=== PATIENT | female | born 1960 | race Caucasian/White ===

== ENCOUNTER → 2020-03-24 13:47 | Outpatient (BNVA) | payer BC, SELFPAY | PROVIDERS: Family Provider Family Medicine; Referring Provider Registered Nurse; Visit Provider Podiatrist Foot & Ankle Surgery | DX: S99.912A Unspecified injury of left ankle, initial encounter (principal); X58.XXXA Exposure to other specified factors, initial encounter | CPT/HCPCS: 73610 ==

== ENCOUNTER 2020-03-24 16:11 | Outpatient (CLI) | payer BC, SELFPAY | END 2020-03-24 16:12 | disposition home or self-care (01) | LOC: SPT 16:13 | PROVIDERS: Family Provider Family Medicine; Visit Provider Podiatrist Foot & Ankle Surgery | DX: Z47.89 Encounter for other orthopedic aftercare (principal); S93.402D Sprain of unspecified ligament of left ankle, subsequent encounter; S82.492D Other fracture of shaft of left fibula, subsequent encounter for closed fracture with routine healing; X58.XXXD Exposure to other specified factors, subsequent encounter | CPT/HCPCS: 97760; L4361 ==

== ENCOUNTER 2020-05-01 15:33 | Emergency (ER) | payer BC, SELFPAY ==
[2020-05-01 15:37] VITALS: BP 146/101; PULSE 94; RESP 18; TEMP 36.6; O2SAT 95; BMI 44.6
--- NOTE | 2020-05-01 15:49 | USCV_ITS ---
Ladan Walls Age: 60 Gender: F : 1960 Exam Date: 05/01/2020 16:11 Ordering Phys: Vanesa Bronson DO Technologist: Margy Garcia Exam Location: [facility] [place] Indication: HISTORY OF PE WITH LT LEG DVT. HISTORY: Patients lt leg is swollen. PROCEDURES: Venous duplex imaging was performed in only the left lower extremity. The following venous structures were evaluated: common femoral vein, profunda vein, proximal portion of the greater saphenous vein, superficial femoral vein, and the popliteal vein. In addition, the posterior tibial and peroneal trunk were evaluated. Serial compression, augmentation maneuvers, and spectral Doppler flow evaluation were performed. FINDINGS: No DVT seen in any vessel examined. CONCLUSIONS No DVT left lower extremity. Domenic Bland (Electronically Signed) Final Date: 01 May 2020 16:33 S
--- NOTE | 2020-05-01 16:01 | W.ED.EXTPRO ---
HPI - Extremity Problem General: Chief complaint: Extremity Injury, Lower Stated complaint: leg swelling and pain Time Seen by Provider: 05/01/20 15:59 History of Present Illness: HPI Narrative: Patient complains about left calf pain just recently got out of a cam walker due to fibular fracture that she had. Said she had a cramp in her leg about 0 400 this morning and it is hurt since and she said is starting to swell. Complaint: extremity pain and extremity swelling Onset (ago): hour(s) Pain Consistency: constant Location: left and lower extremity Severity scale (1-10): 6 Quality: stabbing and aching Radiation: proximal Relieving factors: nothing Exacerbating factors: range of motion and weight bearing Associated symptoms: Reports no associated symptoms; Deny chest pain, fever(s) or rash Context: immobilization Review of Systems Const: Denies: fever(s), chills or body aches Eyes: Denies: change in vision or blurry vision ENMT: Denies: throat pain or nasal congestion Card: Denies: chest pain or dyspnea on exertion Resp: Denies: dyspnea, productive cough or non-productive cough GI: Denies: abdominal pain, nausea or vomiting Musc: Reports: extremity pain (Left calf pain and swelling since 0 400 this morning) Skin/Breast: Denies: rash Neuro: Denies: headache(s) Psych: Denies: anxiety or depression Minh/Lymph: Denies: easy bruising PFS ED PFSH: Medical History Embolism Social History Smoking and tobacco status: never smoked Alcohol intake: never Physical Exam Const: COMMON NORMALS: no acute distress, average body habitus and patient oriented x3 HENMT: COMMON NORMALS: normocephalic HEAD & SCALP: normal to inspection and normocephalic FACE & SINUS: normal facial exam Eye: COMMON NORMALS: conjunctivae normal GENERAL EYE: appearance normal, both eyes and all related structures CONJUNCTIVA: Yes conjunctivae normal Neck/C-Spine: COMMON NORMALS: no JVD Chest: COMMONS NORMALS: normal inspection of the chest Resp: COMMON NORMALS: normal respiratory effort and clear to auscultation bilaterally AUSCULTATION: clear to auscultation bilaterally Cardio: COMMON NORMALS: no JVD, regular rate and regular rhythm RATE: regular rate RHYTHM: regular rhythm GI: COMMON NORMALS: Normal to inspection, nondistended, normoactive bowel sounds present Extremity: COMMON NORMALS: negative for no calf tenderness (Left calf is tender hard to tell if it swollen compared to the right due to her size positive distal pulses) Neuro: COMMON NORMALS: patient oriented x3 Course Vital Signs: Vital signs: Vital Signs Temperature 97.9 F 05/01/20 15:37 Pulse Rate 94 05/01/20 15:37 Respiratory Rate 18 05/01/20 15:37 Blood Pressure 146/101 05/01/20 15:37 Pulse Oximetry 95 05/01/20 15:37 Discharge Plan Discharge Prescriptions: No Action Delflex with 2.5 % Dextrose Ca 2.5 mEq/L- Mg 0.5 mEq/L solution INTRAPERIT RF: 0 copper 5 mg tablet 5 mg PO DAILY RF: 0 loratadine [Claritin Liqui-Gel] 10 mg capsule 10 mg PO DAILY RF: 0 garlic 580 mg capsule 1 mg PO DAILY RF: 0 ascorbate calcium (vitamin C) 500 mg tablet 500 mg PO DAILY RF: 0 (DME) CAM WALKER See Rx Instructions .ROUTE .MEDSUPPLY Qty: 1 RF: 0 Coding Level of Care Code ED Gas Engine Operator Generators for Jamaal Montes
[2020-05-01 16:47] VITALS: PULSE 87; RESP 18; O2SAT 98
== END 2020-05-01 16:48 | disposition home or self-care (01) ==
PROVIDERS: Emergency Provider Nurse Practitioner Family; PCP Family Medicine
DX: M79.89 Other specified soft tissue disorders (principal)
CPT/HCPCS: 12345; 93971; 99281; 99282

== ENCOUNTER 2020-06-08 12:57 | Outpatient (CLI) | payer BC, SELFPAY ==
[2020-06-08] MEDS: iohexol 350 mg/mL 100 mL Btl IV (13:30)
--- NOTE | 2020-06-08 13:30 | CT_ITS ---
WS: [id number] CTA THORACIC TECHNIQUE: Contrast enhanced CTA of the thoracic aorta with coronal and sagittal reformatted images a nd maximum intensity projection (MIP) images. CLINICAL INFORMATION: assess thoracic aorta aneurysm COMPARISON: 8 ,019 DLP: 1313.[address] scans at [facility] use at least one of these dose optimization techniques: automat ed exposure control; mA and/or kV adjustment per patient size (includes targeted exams where dose is matched to clinical indication); or iterative reconstruction. FINDINGS: Proximal main pulmonary arteries are normal. Segmental and subsegmental pulmonary arteries appear normal. No evidence of pulmonary embolus. Slightly ectatic ascending thoracic aorta measuring 3.7 x 3.7 cm unchanged from previous. Normal caliber descending thoracic aorta. Postoperative changes lower cervical spine. Great vessel origins are normal in appearance. No mediastinal or hilar lymphadenopathy. No axillary l ymphadenopathy. Lungs are well aerated. No acute pulmonary infiltrates. No consolidation or pleural f luid. No focal pneumonia. Cholecystectomy clips. Hepatic cyst right hepatic lobe measuring 1.7 CM. Enhancing cavernous hemangio ma unchanged measuring 1.9 cm. Partially visualized visualized renal lesion only covered on the noncontrast imaging involving the up per pole left kidney suspicious for neoplasm also partially visualized on prior CT chest. Recommend C T abdomen pelvis and urology consultation. CT/CT angio chest [id number] IMPRESSION: 1. Stable ectatic ascending thoracic aorta unchanged measuring 3.7 x 3.7 cm. 2. No evidence for pulmonary embolus. 3. Normal caliber descending thoracic aorta and visualized upper abdominal aor ta. 4. 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 Recommend further evaluation with CT abdomen pelvis and ur ology consultation.
== END 2020-06-08 12:58 | disposition home or self-care (01) ==
LOC: RADWPI 13:00
PROVIDERS: PCP Family Medicine; Visit Provider Internal Medicine
DX: I71.9 Aortic aneurysm of unspecified site, without rupture (principal)
CPT/HCPCS: 71275; Q9967

== ENCOUNTER → 2022-05-30 14:02 | Outpatient (BNVA) | payer OTHER, SELFPAY | PROVIDERS: PCP Family Medicine; Visit Provider Specialist | DX: S70.01XA Contusion of right hip, initial encounter (principal); W18.30XA Fall on same level, unspecified, initial encounter | CPT/HCPCS: 73502 ==

== ENCOUNTER → 2022-06-22 15:18 | Outpatient (BNVA) | payer OTHER, SELFPAY | PROVIDERS: PCP Family Medicine; Visit Provider Specialist | DX: S93.601A Unspecified sprain of right foot, initial encounter (principal); W01.0XXA Fall on same level from slipping, tripping and stumbling without subsequent striking against object, initial encounter; E66.01 Morbid (severe) obesity due to excess calories; Z68.41 Body mass index [BMI] 40.0-44.9, adult | CPT/HCPCS: 73610; 73630 ==

== ENCOUNTER 2022-08-07 19:10 | Emergency (ER) | payer OTHER, SELFPAY ==
[2022-08-07 19:22] VITALS: BP 167/113; PULSE 88; RESP 16; TEMP 36.5; O2SAT 97; BMI 43.9
--- NOTE | 2022-08-07 19:36 | XRR_ITS ---
PROCEDURE INFORMATION: Exam: XR Right Shoulder Exam date and time: 08/07/2022 9:05 PM Age: 62 years old Clinical indication: Injury or trauma; Fall; Blunt trauma (contusions or hematomas); Shoulder; Right TECHNIQUE: Imaging protocol: Radiologic exam of the Right shoulder. Views: 2 or more views. COMPARISON: CR XR chest 1V [id number] 05/07/2019 12:28 PM FINDINGS: Bones/joints: Cervical spine fusion hardware noted. Spurring of anterior undersurface of acromion suggested. Humeral head appears somewhat superiorly migrated. No findings of fracture or dislocation. Soft tissues: Normal. XR/XR shoulder RT min 2V* [id number] IMPRESSION: No acute bony findings. Findings suspicious for rotator cuff arthropathy.
[2022-08-07] MEDS: morphine 4 mg/mL SDV 1 mL IM (19:52)
--- NOTE | 2022-08-07 19:56 | W.ED.EXTPRO ---
HPI - Extremity Problem General: Chief complaint: Extremity Injury, Upper Stated complaint: Right Arm injury, fall Time Seen by Provider: 08/07/22 19:27 Source: patient Mode of arrival: ambulatory Limitations: no limitations History of Present Illness: 62-year-old female who states that she had fell this evening landed on her right shoulder. She states she has had right shoulder along with right trapezius pain since then. Its much worse with palpation and movement improved with rest. She denies hitting her head denies any other injuries. Associated symptoms: Deny chest pain, fever(s) or rash Review of Systems Const: Denies: fever(s), chills, body aches or change in appetite Eyes: Denies: blurry vision or eye discomfort ENMT: Denies: throat pain or dental pain Card: Denies: chest pain Resp: Denies: dyspnea GI: Denies: abdominal pain, nausea, vomiting or diarrhea : Denies: dysuria Musc: Denies: neck pain or back pain Skin/Breast: Denies: rash Neuro: Denies: headache(s) Psych: Denies: depression Minh/Lymph: Denies: easy bruising All/Imm: Denies: urticaria PFSH ED PFSH: Medical History (Updated 08/07/22 @ 20:14 by Tl Aiken MD) Embolism Social History Smoking and tobacco status: never smoked Alcohol intake: never Physical Exam Const: COMMON NORMALS: no acute distress, patient oriented x3 and healthy appearing HENMT: COMMON NORMALS: normocephalic and atraumatic HEAD & SCALP: normocephalic and atraumatic Eye: COMMON NORMALS: Equal, round and reactive pupils present and EOMs intact bilaterally PUPIL: Yes Equal, round and reactive pupils present Neck/C-Spine: COMMON NORMALS: full ROM and supple Chest: COMMONS NORMALS: normal inspection of the chest and normal palpation of entire chest wall Resp: COMMON NORMALS: normal respiratory effort, No retractions, No use of accessory muscles and clear to auscultation bilaterally AUSCULTATION: clear to auscultation bilaterally Cardio: COMMON NORMALS: regular rate, regular rhythm and No murmurs present (Cardio) RATE: regular rate RHYTHM: regular rhythm GI: COMMON NORMALS: Normal to inspection, nondistended, normoactive bowel sounds present, Soft to palpation, non-tender and no masses PALPATION: Yes Soft to palpation Extremity: NARRATIVE EXTREMITY EXAM: Tenderness over the right side the neck with tenderness in the shoulder and trapezius muscle she does have pain with range of motion distal pulses intact no midline neck tenderness Neuro: COMMON NORMALS: patient oriented x3, moves all extremities and no focal motor deficits Psych: COMMON NORMALS: mental status grossly normal, Normal thought process present and cooperative THOUGHT PROCESS: Normal thought process present Skin: COMMON NORMALS: no rashes or lesions noted and no wounds GENERAL SKIN EXAM: no rashes or lesions noted Course Vital Signs: Vital signs: Vital Signs Temperature 97.7 F 08/07/22 19:22 Pulse Rate 88 08/07/22 19:22 Respiratory Rate 16 08/07/22 19:22 Blood Pressure 167/113 08/07/22 19:22 Pulse Oximetry 97 08/07/22 19:22 Oxygen Delivery Me thod 08/07/22 19:22 MDM - Extremity (Nontraumatic) Medical Decision Making Patient presents here with shoulder strain x-ray is normal patient placed in a sling is to follow-up with orthopedics return if worsening. Lab Data Radiology Impressions Shoulder X-Ray 08/07/22 19:36 IMPRESSION: No acute bony findings. Findings suspicious for rotator cuff arthropathy. Discharge Plan Discharge Patient Disposition: Home Clinical Impression: Sprain of right shoulder Qualifiers: Encounter type: initial encounter Shoulder sprain type: unspecified sprain Qualified Code(s): S43.401A - Unspecified sprain of right shoulder joint, initial encounter Condition: Stable Prescriptions: New Naprosyn 500 mg tablet 500 mg PO BID PRN (Reason: pain) Qty: 20 0RF No Action copper 5 mg tablet 5 mg PO DAILY loratadine [Claritin Liqui-Gel] 10 mg capsule 10 mg PO DAILY garlic 580 mg capsule 1 mg PO DAILY ascorbate calcium (vitamin C) 500 mg tablet 500 mg PO DAILY (DME) CAM WALKER See Rx Instructions .ROUTE .MEDSUPPLY Qty: 1 0RF Rx Instructions: As directed meloxicam 15 mg tablet 15 mg PO DAILY 30 Days Qty: 30 3RF Discharge Orders: Discharge ED (Routine); Ordered 08/07/22 Ordered By: Tl Aiken Referrals: Huang Michaels MD [Physician] - 1-3 days Janet Melvin DO [Primary Care Provider] - Discharge Diet: Advance as tolerated Discharge Activity: Resume usual activity Patient Instructions: Shoulder Sprain (ED) Coding Level of Care Code ED Senior Compliance Analyst for Chg Fwd Exam Comprehensive
--- NOTE | 2022-08-08 10:02 | DCPLANNER ---
Addendum entered by Sunni Gallegos 08/18/22 16:37: Patient had a follow up appointment scheduled for 08.10.[address] Michaels at ortho - patient did attend appointment. Original Note: case managers had message to schedule a follow up appointment for patient with ortho. case managers sent patients information to the front office staff at ortho. Patients information will be printed and reviewed. Clinic will she patient with appointment information.
== END 2022-08-07 20:20 | disposition home or self-care (01) ==
PROVIDERS: Emergency Provider Emergency Medicine; PCP Family Medicine
DX: S43.401A Unspecified sprain of right shoulder joint, initial encounter (principal); W19.XXXA Unspecified fall, initial encounter
CPT/HCPCS: 73030; 96372; 99284; J2270

== ENCOUNTER 2022-12-20 21:07 | Emergency (ER) | payer OTHER, SELFPAY ==
[2022-12-20 21:13] VITALS: BP 173/115; PULSE 93; RESP 20; TEMP 36.4; O2SAT 94; BMI 44.6
[2022-12-20 21:18] VITALS: BP 173/115; PULSE 101; RESP 18; TEMP 36.4; O2SAT 95
--- NOTE | 2022-12-20 21:21 | XRR_ITS ---
PROCEDURE INFORMATION: Exam: XR Left Foot Exam date and time: 12/20/2022 9:29 PM Age: 62 years old Clinical indication: Injury or trauma; Fall; Sprain or strain; Ankle and foot; Left; Additional info: Fall pain TECHNIQUE: Imaging protocol: Radiologic exam of the left foot. Views: 3 or more views. COMPARISON: No relevant prior studies available. FINDINGS: Bones/joints: Calcified heel spur. Soft tissues: Normal. XR/XR foot LT min 3V* [id number] IMPRESSION: Negative for fracture or dislocation.
--- NOTE | 2022-12-20 21:21 | XRR_ITS ---
PROCEDURE INFORMATION: Exam: XR Left Ankle Exam date and time: 12/20/2022 9:31 PM Age: 62 years old Clinical indication: Injury or trauma; Fall; Sprain or strain; Ankle and foot; Left; Additional info: Fall, pain TECHNIQUE: Imaging protocol: Radiologic exam of the left ankle. Views: 3 or more views. COMPARISON: CR (LOW EXM, ) 12/20/2022 9:29 PM FINDINGS: Bones/joints: Calcified heel spur. Soft tissues: Normal. XR/XR ankle LT min 3V* [id number] IMPRESSION: Negative for fracture or dislocation.
--- NOTE | 2022-12-20 21:22 | ED_ITS ---
HPI - Extremity Problem General: Chief complaint: Extremity Injury, Lower Stated complaint: left ankle injury Time Seen by Provider: 12/20/22 21:17 History of Present Illness: Patient presents ER with complaints of left foot and ankle pain. Patient states she was walking in her yard earlier tonight and tripped over a root, felt heard a pop in her ankle and had immediate pain. Patient is unable to put weight on the foot. Patient has had problems with what sounds like a avulsion type fracture of the lateral malleolus in the past. MD Complaint: extremity pain and extremity swelling Onset (ago): hour(s) (A few hours ago) Pain Consistency: constant Location: left and lower extremity Severity scale (1-10): 8 Quality: aching and constant Relieving factors: nothing Exacerbating factors: range of motion, weight bearing and palpation Associated symptoms: Reports no associated symptoms; Deny chest pain, fever(s) or rash Review of Systems General: Reports: 10 or more systems reviewed and unremarkable except in HPI and below Const: Denies: fever(s) or chills Eyes: Denies: change in vision ENMT: Denies: throat pain or odynophagia Card: Denies: chest pain, palpitations or irregular heart rhythm Resp: Denies: dyspnea, productive cough or non-productive cough GI: Denies: abdominal pain, nausea, vomiting or diarrhea : Denies: flank pain, difficulty voiding or dysuria Musc: Reports: extremity pain and extremity swelling Skin/Breast: Denies: rash or pruritus Neuro: Denies: headache(s) or numbness in extremities [facility] ED PFSH: Medical History (Updated 12/20/22 @ 22:24 by Paul Avilez DO) Embolism Social History Smoking and tobacco status: never smoked Alcohol intake: never Physical Exam Const: COMMON NORMALS: no acute distress, average body habitus, patient oriented x3, no limitations, healthy appearing, alert and well nourished HENMT: COMMON NORMALS: normocephalic, atraumatic, hearing grossly normal bilaterally, external ears normal, Normal external nose present and moist oral mucous membranes HEAD & SCALP: normocephalic and atraumatic NOSE: Normal external nose present EXTERNAL EAR: Yes external ears normal Eye: COMMON NORMALS: Equal, round and reactive pupils present, EOMs intact bilaterally, conjunctivae normal and no scleral icterus CONJUNCTIVA: Yes conjunctivae normal PUPIL: Yes Equal, round and reactive pupils present Neck/C-Spine: COMMON NORMALS: full ROM, no lymphadenopathy, supple, no meningeal signs, no JVD and Thyroid normal THYROID: Thyroid normal Chest: COMMONS NORMALS: normal inspection of the chest and normal palpation of entire chest wall Resp: COMMON NORMALS: normal respiratory effort, No retractions, No use of accessory muscles and clear to auscultation bilaterally AUSCULTATION: clear to auscultation bilaterally Cardio: COMMON NORMALS: no JVD, regular rate, regular rhythm, S1 normal heart sound present and S2 normal heart sound present RATE: regular rate RHYTHM: regular rhythm HEART SOUNDS: S1 normal heart sound present and S2 normal heart sound present GI: COMMON NORMALS: Normal to inspection, nondistended, normoactive bowel sounds present, Soft to palpation, non-tender and No hepatosplenomegaly present PALPATION: Yes Soft to palpation and Yes No hepatosplenomegaly present Extremity: NARRATIVE EXTREMITY EXAM: Patient is exquisitely tender over left lateral malleolus and left fifth met atarsal region, they are swollen, patient is unable to bear weight secondary to pain, limited range of motion secondary to pain, Neuro: COMMON NORMALS: patient oriented x3, CN's II-XII intact bilaterally, moves all extremities, no focal motor deficits and no sensory deficits noted SENSORIUM/ORIENTATION: Yes alert MENINGEAL SIGNS: Yes no meningeal signs Course Vital Signs: Vital signs: Vital Signs Temperature 97.5 F L 12/20/22 21:18 Pulse Rate 101 H 12/20/22 21:18 Respiratory Rate 18 12/20/22 21:18 Blood Pressure 173/115 12/20/22 21:18 Pulse Oximetry 95 12/20/22 21:18 Oxygen Delivery Me thod 12/20/22 21:18 MDM - Extremity (Nontraumatic) Medical Decision Making Patient presents to the ER with complaints of left ankle pain and swelling secondary post fall. Patient has an extensive history of ankle and foot problems and already sees Dr. Montero the bottom loader. Patient is currently on meloxicam daily and Voltaren gel 3 times a day for her right foot. X-rays were taken of the foot and ankle which reveal no acute fracture. Patient already has a boot is and crutches at home. Patient was instructed to use these at least for the next 3 days and to follow-up with Dr. Montero in approximately 7 to 10 days. Patient is also instructed to use the Voltaren gel on her left foot and ankle 3 times a day as needed. Patient will be discharged home Differential Diagnosis Unlikely herpes zoster, gout, cellulitis, superficial thrombophlebitis, deep venous thrombosis of upper extremity, lower extremity edema or deep vein thrombosis of lower extremity Medical Records I reviewed the patient's medical records. Lab Data I reviewed the patient's lab results. Radiology Impressions Ankle X-Ray 12/20/22 21:21 IMPRESSION: Negative for fracture or dislocation. Foot X-Ray 12/20/22 21:21 IMPRESSION: Negative for fracture or dislocation. Discharge Plan Discharge Patient Disposition: Home Clinical Impression: Fall from ground level Left ankle sprain Qualifiers: Encounter type: initial encounter Involved ligament of ankle: unspecified ligament Qualified Code(s): S93.402A - Sprain of unspecified ligament of left ankle, initial encounter Condition: Stable Prescriptions: No Action copper 5 mg tablet 5 mg PO DAILY loratadine [Claritin Liqui-Gel] 10 mg capsule 10 mg PO DAILY garlic 580 mg capsule 1 mg PO DAILY ascorbate calcium (vitamin C) 500 mg tablet 500 mg PO DAILY (DME) CAM WALKER See Rx Instructions .ROUTE .MEDSUPPLY Qty: 1 0RF Rx Instructions: As directed meloxicam 15 mg tablet 15 mg PO DAILY 30 Days Qty: 30 3RF Naprosyn 500 mg tablet 500 mg PO BID PRN (Reason: pain) Qty: 20 0RF Discharge Orders: Discharge ED (Routine); Ordered 12/20/22 Ordered By: Paul Avilez Referrals: Janet Melvin DO [Primary Care Provider] - 1 week Discharge Activity: Limit activity as instructed Patient Instructions: Ankle Sprain (ED) Activity Restrictions/Additional Instructions: Please start using your cam boot and crutches for your left ankle sprain. Continue using your meloxicam and start using your Voltaren gel on your left ankle 3 times a day as needed. Please follow-up with Dr. Montero in approximately 7 to 10 days if needed Coding Level of Care Code ED Survey Rodman for Jamaal Montes
[2022-12-20 23:04] VITALS: BP 143/106; PULSE 89; RESP 18; O2SAT 95
== END 2022-12-20 23:05 | disposition home or self-care (01) ==
PROVIDERS: Emergency Provider Emergency Medicine; PCP Family Medicine
DX: S93.402A Sprain of unspecified ligament of left ankle, initial encounter (principal); W18.09XA Striking against other object with subsequent fall, initial encounter
CPT/HCPCS: 73610; 73630; 99283

== ENCOUNTER 2023-08-17 15:57 | Outpatient (CLI) | payer OTHER, SELFPAY ==
--- NOTE | 2023-08-17 16:23 | CT_ITS ---
WS: [id number] CT HEAD WITH AND WITHOUT CONTRAST HISTORY: ACUTE NONINTRACTABLE HEADACHE, HX OF TIA TECHNIQUE: Noncontrast 2.5 mm axial images obtained from the vertex to the skull base. Additional [place] ging performed at 2.5 mm axial images status post IV contrast. Bone and soft tissue windows are revie wed. All CT scans at [facility] use at least one of these dose optimization techniques: autom ated exposure control; mA and/or kV adjustment per patient size (includes targeted exams where dose i s matched to clinical indication); or iterative reconstruction. CONTRAST: Omnipaque 350; 100 mL IV. DLP: 1930.40 mGy.cm COMPARISON: None available. No acute intracranial hemorrhage, edema or midline shift. Perivascular space is nonenhancing along th e inferior RIGHT basal ganglia. Ventricles are normal size. No significant volume loss or atrophy. No prior large territory infarct. No enhancing mass or vascular malformations identified. Dural venous sinuses are normally enhancing. Visualized [place] of [place] is unremarkable. Paranasal sinuses as visualized: Clear. Mastoid air cells: Clear. Calvarium and scalp: Intact. IMPRESSION: 1. No acute intracranial hemorrhage or edema. 2. No enhancing mass or vascular malformation. 3. No significant sinus disease.
[2023-08-17] MEDS: iohexol 350 mg/mL 500 mL Btl (per mL) IV (16:44)
== END 2023-08-17 15:58 | disposition home or self-care (01) ==
LOC: RAD 15:57
PROVIDERS: PCP Family Medicine; Visit Provider Nurse Practitioner
DX: R51.9 Headache, unspecified (principal); R20.2 Paresthesia of skin; M54.2 Cervicalgia; G89.29 Other chronic pain; Z86.73 Personal history of transient ischemic attack (TIA), and cerebral infarction without residual deficits
CPT/HCPCS: 70470; Q9967

== ENCOUNTER 2024-12-05 20:07 | Emergency (ER) | payer OTHER, SELFPAY ==
[2024-12-05 20:19] VITALS: BP 178/115; PULSE 116; RESP 18; TEMP 37.4; O2SAT 95; BMI 43.8
--- NOTE | 2024-12-05 20:35 | XRR_ITS ---
PROCEDURE INFORMATION: Exam: XR Chest Exam date and time: 12/05/2024 9:22 PM Age: 64 years old Clinical indication: Cough; Additional info: Cough/congestion TECHNIQUE: Imaging protocol: Radiologic exam of the chest. Views: 1 view. COMPARISON: CT angio chest [id number] 06/08/2020 1:22 PM FINDINGS: Lungs: Unremarkable. No consolidation. Pleural spaces: Unremarkable. No pleural effusion. No pneumothorax. Heart/Mediastinum: Unremarkable. No cardiomegaly. Bones/joints: Unremarkable. XR/XR chest 1V portable [id number] IMPRESSION: No acute findings.
--- NOTE | 2024-12-05 20:48 | ED_ITS ---
HPI - URI/Sore Throat 2 General: Chief Complaint: Upper Respiratory Infection Stated Complaint: Congestion worse hard to breath Time Seen by Provider: 12/05/24 20:23 Source: patient Mode of arrival: wheelchair Limitations: no limitations History of Present Illness: 64yo female presents with significant ot her for evaluation of upper respiratory symptoms. Patient reports she has had cough, congestion, and fever that started on Monday. Patient reports that her fever finally broke yesterday. Patient reports she did not take anything for the fever. Patient states she is also having some back pain that radiates around to the abdomen that started with coughing initially, but is now present without coughing. Patient also reports that she has had some diarrhea. Patient denies any known medical problems. She reports that she has not been to a doctor for approximately 5 years. Patient denies difficulty breathing chest pain, vomiting, diarrhea, any other concerns at this time. Associated symptoms: Reports chills and fever(s); Deny abdominal pain, chest pain or vomiting Related Data Home Medications ?Medication ?Instructions ?Recorded ?Confirmed ascorbate calcium (vitamin C) 500 500 mg PO DAILY 03/1112/12/22 mg tablet copper 5 mg tablet 5 mg PO DAILY 03/24/2012/12 garlic 580 mg capsule 1 mg PO DAILY 03/24/2012/12 loratadine 10 mg capsule (Claritin 10 mg PO DAILY 03/1112/12/22 Liqui-Gel) Previous Rx's ?Medication ?Instructions ?Recorded [facility] #1 ea 03/24/20 naproxen 500 mg tablet (Naprosyn) 500 mg PO BID PRN pa in #20 tabs 08/07/22 meloxicam 15 mg tablet 15 mg PO DAILY 30 days #30 t abs 08/24/22 Allergies Allergy/AdvReac Type Severity Reaction Status Date / Time acetaminophen (From Percocet) Allergy vomit Verified 12/12/22 14:34 hydrocodone Allergy vomit Verified 12/12/22 14:34 oxycodone (From Percocet) Allergy vomit Verified 12/12/22 14:34 tramadol Allergy vomit Verified 12/12/22 14:34 Review of Systems 2 Const: Reports: fever(s), chills and body aches Card: Denies: chest pain Resp: Reports: non-productive cough GI: Denies: abdominal pain or vomiting Musc: Denies: neck pain PFSH ED 2 PFSH: Medical History (Updated 12/05/24 @ 22:31 by EMILEE Garcia) Embolism Social History Smoking and tobacco/nicotine status: never used tobacco/nicotine Alcohol intake: never Substance/Drug Use: never Physical Exam 2 Const: COMMON NORMALS: no acute distress, patient oriented x3 and alert G ENERAL APPEARANCE: cooperative ORIENTATION/CONSCIOUSNESS: Yes awake OTHER: Patient is sitting upright on the side of the stretcher no acute distress. She is able to give history with no difficulty. She is interactive with exam appropriately. Family is at bedside HENMT: COMMON NORMALS: normocephalic, atraumatic, external ears normal and TM's normal bilaterally HEAD & SCALP: normocephalic and atraumatic E XTERNAL EAR: Yes external ears normal TYMPANIC MEMBRANE: TM's normal bilaterally MOUTH: Normal oral and palatal mucosa present and lip normal T HROAT: postnasal drainage Neck/C-Spine: COMMON NORMALS: full ROM Chest: CHEST: Yes Symmetrical chest wall rise Resp: COMMON NORMALS: normal respiratory effort, No use of accessory muscles and clear to auscultation bilaterally AUSCULTATION: clear to auscultation bilaterally Cardio: RATE: tachycardic GI: COMMON NORMALS: Soft to palpation and non-tender PALPATION: Yes Soft to palpation : COMMON NORMALS: Yes no CVA tenderness BLADDER/KIDNEY EXAM: Yes no CVA tenderness Back/Pelvis: COMMON NORMALS: no CVA tenderness Extremity: COMMON NORMALS: full ROM Neuro: COMMON NORMALS: patient oriented x3 SENSORIUM/ORIENTATION: Yes alert Psych: COMMON NORMALS: cooperative Course 2 Vital Signs: Vital signs: Vital Signs Temperature 99.4 F 12/05/24 20:19 Pulse Rate 116 H 12/05/24 20:19 Respiratory Rate 18 12/05/24 20:19 Blood Pressure 178/115 12/05/24 20:19 Pulse Oximetry 95 12/05/24 20:19 Oxygen Delivery Me thod Room Air 12/05/24 20:19 MDM - URI/Sore Throat Medical Decision Making 64yo female here with significant other for evaluation of upper respiratory symptoms. Patient reports she has had cough, congestion, and fever that started on Monday. Patient reports that her fever finally broke yesterday. Patient reports she did not take anything for the fever. Patient states she is also having some back pain that radiates around to the abdomen that started with coughing initially, but is now present without coughing. Patient also reports that she has had some diarrhea. Patient denies any known medical problems. She reports that she has not been to a doctor for approximately 5 years. Patient denies difficulty breathing chest pain, vomiting, diarrhea, any other concerns at this time. Patient is nontoxic in appearance. Tachycardia noted on triage vitals with a heart rate of 116 and temperature of 99.4. No leukocytosis or indication of anemia. White blood cell count noted to be 7.4 with a hemoglobin of 16.2. Very mild hyponatremia with a sodium of 135. Anion gap is very mildly elevated at 19.1, but carbon dioxide noted to be in the normal range at 22. UA unremarkable. Influenza A positive. Chest x-ray grossly unremarkable. Unable to obtain IV for normal saline bolus. Discussed all findings with patient and family. They are agreeable with increasing oral intake at home. Encouraged to use electrolyte solutions. Recommend follow-up with primary care, call Monday with an update of symptoms and to discuss to recheck. Return precautions provided. Patient and family state understanding and have no further questions or concerns at this time. Differential Diagnosis Likely upper respiratory infection, viral infection, bronchitis and influenza Lab Data I reviewed the patient's lab results. 12/05/24 20:59 12/05/24 20:59 Radiology Impressions Chest X-Ray 12/05/24 20:35 IMPRESSION: No acute findings. Laboratory Results WBC 7.40 10^3/uL (3.29-11.43) 12/05/24 20:59 RBC 5.41 10^6/uL (3.85-5.65) 12/05/24 20:59 Hgb 16.20 g/dL (11.27-16.99) 12/05/24 20:59 Hct 48.9 % (36-47) H 12/05/24 20:59 MCV 90.4 fl (85-98) 12/05/24 20:59 MCH 29.9 pg (27-33) 12/05/24 20:59 MCHC 33.1 g/dL (30-55) 12/05/24 20:59 RDW 13.1 % (12.1-15.1) 12/05/24 20:59 Plt Count 172 10^3/cmm (157-399) 12/05/24 20:59 MPV 10.4 fL (7.4-10.4) 12/05/24 20:59 Neut % (Auto) 67.1 % 12/05/24 20:59 Lymph % (Auto) 23.2 % 12/05/24 20:59 Mccreary % (Auto) 9.3 % 12/05/24 20:59 Eos % (Auto) 0.0 % 12/05/24 20:59 Baso % (Auto) 0.3 % 12/05/24 20:59 Neut # (Auto) 4.96 10^3/uL (1.8-7.7) 12/05/24 20:59 Lymph # (Auto) 1.7 10^3/uL (0.8-4.8) 12/05/24 20:59 Mccreary # (Auto) 0.7 10^3/uL (0.2-0.9) 12/05/24 20:59 Eos # (Auto) 0.0 10^3/uL (0.0-0.8) 12/05/24 20:59 Baso # (Auto) 0.0 10^3/uL (0.0-0.1) 12/05/24 20:59 Nucleated RBC % (auto) 0 % 12/05/24 20:59 Nucleated RBCs # 0.0 /100WBC 12/05/24 20:59 Sodium 135 mmol/L (136-145) L 12/05/24 20:59 Potassium 4.1 mmol/L (3.5-5.1) 12/05/24 20:59 Chloride 98 mmol/L (98-107) 12/05/24 20:59 Carbon Dioxide 22 mmol/L (22-29) 12/05/24 20:59 Anion Gap 19.1 (5-19) H 12/05/24 20:59 BUN 10 mg/dL (8-23) 12/05/24 20:59 Creatinine 0.7 mg/dL (0.5-0.9) 12/05/24 20:59 GFR Calculation 84.5 mL/min (90-130) L 12/05/24 20:59 Glucose 153 mg/dL (65-115) H 12/05/24 20:59 Calculated Osmolality 282 mOsm/kg (285-295) L 12/05/24 20:59 Calcium 8.9 mg/dL (8.5-10.5) 12/05/24 20:59 Total Bilirubin 0.4 mg/dL (0.15-1.2) 12/05/24 20:59 AST 31 U/L (0-32) 12/05/24 20:59 ALT 47 U/L (0-33) H 12/05/24 20:59 Alkaline Phosphatase 82 U/L (35-105) 12/05/24 20:59 Total Protein 7.3 g/dL (6.6-8.7) 12/05/24 20:59 Albumin 4.1 g/dL (3.5-5.2) 12/05/24 20:59 Globulin 3.2 g/dL (1.3-4.6) 12/05/24 20:59 Urine Color Yellow (Yellow) 12/05/24 21:15 Urine Appearance Clear (CLEAR) 12/05/24 21:15 Urine pH Not Reportable 12/05/24 21:15 Ur Specific [place] Not Reportable 12/05/24 21:15 Urine Protein Not Reportable 12/05/24 21:15 Urine Glucose (UA) Not Reportable 12/05/24 21:15 Urine Ketones Not Reportable 12/05/24 21:15 Urine Blood Not Reportable 12/05/24 21:15 Urine Nitrate Not Reportable 12/05/24 21:15 Urine Bilirubin Not Reportable 12/05/24 21:15 Urine Urobilinogen Not Reportable 12/05/24 21:15 Ur Leukocyte Esterase Not Reportable 12/05/24 21:15 Urine RBC None /hpf (0-2) 12/05/24 21:15 Urine WBC None /hpf (0-5) 12/05/24 21:15 Ur Squamous Epith Cells 0-4 /hpf (0-5) H 12/05/24 21:15 Amorphous Sediment Not Reportable 12/05/24 21:15 Urine Bacteria Trace /hpf (NONE) 12/05/24 21:15 Influenza A (PCR) Positive (Negative) 12/05/24 21:05 Influenza Type B (PCR) Negative (Negative) 12/05/24 21:05 RSV (PCR) Negative (Negative) 12/05/24 21:05 SARS-CoV-2 (PCR) Negative (Negative) 12/05/24 21:05 All radiology interpretation(s) finalized by discharge Discharge Plan Discharge Patient Disposition: Home Clinical Impression: Influenza A Condition: Stable Prescriptions: No Action copper 5 mg tablet 5 mg PO DAILY loratadine [Claritin Liqui-Gel] 10 mg capsule 10 mg PO DAILY garlic 580 mg capsule 1 mg PO DAILY ascorbate calcium (vitamin C) 500 mg tablet 500 mg PO DAILY (DME) [facility] See Rx Instructions .ROUTE .MEDSUPPLY Qty: 1 0RF Rx Instructions: As directed meloxicam 15 mg tablet 15 mg PO DAILY 30 Days Qty: 30 3RF Naprosyn 500 mg tablet 500 mg PO BID PRN (Reason: pain) Qty: 20 0RF Discharge Orders: Discharge ED (Routine); Ordered 12/05/24 Ordered By: Marcus Umaña Referrals: Janet Melvin DO [Primary Care Provider] - Discharge Diet: Usual diet Discharge Activity: Increase activity as tolerated Patient Instructions: Influenza (ED) Activity Restrictions/Additional Instructions: No acute concerning abnormalities noted on the blood work today Your viral panel was positive for influenza A. This is a viral upper respiratory illness that typically lasts 7 to 10 days Increase your fluid intake and continue to monitor your symptoms Follow-up with primary care, call with an update of symptoms and to discuss to recheck Return to the emergency department if any rapid worsening symptoms, difficulty breathing, shortness of breath, chest pain, and as needed Print Language: Hebrew Coding Level of Care Code ED Engineer Byproduct for Jamaal Montes
[2024-12-05 21:15] LABS: Basophils % 0.3 %; Hematocrit 48.9 % (36-47); Lymphocytes # 1.7 10^3/uL (0.8-4.8); Lymphocytes % 23.2 %; Mean Corpuscular HGB Conc 33.1 g/dL (30-55); Mean Corpuscular Hemoglobin 29.9 pg (27-33); Mean Corpuscular Volume 90.4 fl (85-98); Mean Platelet Volume 10.4 fL (7.4-10.4); Monocytes # 0.7 10^3/uL (0.2-0.9); Monocytes % 9.3 %; Neutrophils # 4.96 10^3/uL (1.8-7.7); Neutrophils % 67.1 %; Nucleated Red Blood Cells % 0 %; Platelet Count 172 10^3/cmm (157-399); Red Blood Count 5.41 10^6/uL (3.85-5.65); Red Cell Distribution Width 13.1 % (12.1-15.1)
[2024-12-05 21:36] LABS: Alanine Aminotransferase 47 U/L (0-33); Albumin Level 4.1 g/dL (3.5-5.2); Alkaline Phosphatase 82 U/L (35-105); Anion Gap 19.1 (5-19); Aspartate Amino Transferase 31 U/L (0-32); Blood Urea Nitrogen 10 mg/dL (8-23); Calcium 8.9 mg/dL (8.5-10.5); Carbon Dioxide 22 mmol/L (22-29); Chloride 98 mmol/L (98-107); Globulin 3.2 g/dL (1.3-4.6); Glomerular Filtration Rate 84.5 mL/min (90-130); Glucose 153 mg/dL (65-115); Osmolality Calculated 282 mOsm/kg (285-295); Potassium 4.1 mmol/L (3.5-5.1); Sodium 135 mmol/L (136-145); Total Bilirubin 0.4 mg/dL (0.15-1.2); Total Protein 7.3 g/dL (6.6-8.7)
[2024-12-05 21:46] LABS: Influenza A POSITIVE (Negative); Influenza B NEGATIVE (Negative); Respiratory Syncytial Virus Ce NEGATIVE (Negative); SARS-CoV-2 PCR NEGATIVE (Negative)
[2024-12-05 22:08] LABS: Add Urine Microscopic? NO; Squamous Epithelial Cell Urine 0-4 /hpf (0-5); UA Manual Slide Review YES; Urine Appearance Clear (CLEAR); Urine Color Yellow (Yellow)
[2024-12-05 22:09] LABS: Add Urine Culture? No; Bacteria Urine TRACE /hpf
[2024-12-05 22:10] LABS: Charge for UA Resulting for Rev
[2024-12-05 22:44] VITALS: BP 149/90; PULSE 113; RESP 22; O2SAT 91
== END 2024-12-05 22:45 | disposition home or self-care (01) ==
PROVIDERS: Emergency Provider Nurse Practitioner; PCP Family Medicine
DX: J10.1 Influenza due to other identified influenza virus with other respiratory manifestations (principal); Z11.52 Encounter for screening for COVID-19
CPT/HCPCS: 36415; 71045; 80053; 81003; 85025; 87637; 99284